=== PATIENT | female | born 1980 | race Caucasian/White ===

== ENCOUNTER 2018-10-26 21:03 | Emergency (ER) | payer SELFPAY ==
[~2018-10-26] VITALS: Ht 160 cm; Wt 96.2 kg
[2018-10-26 21:10] VITALS: BP 128/65
--- NOTE | 2018-10-26 21:10 | NUR ---
TO BED # 02 VIA WHEELCHAIR
--- NOTE | 2018-10-26 21:14 | NUR ---
38 YO FEMALE COMES TO ED FOR S/P FALL. 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 PT STATES, I HAD SLIPPED AND TWISTED MY R ANKLE AND FELL. MY L FOOT AND L SHOULDER HIT THE GROUND HARD. PT DENIES N/V/D. PT AAOX4. LUNGS CLEAR EVEN UNLABORED. DISTAL PULSES INTACT +2 PEDAL AND +2 POST TIBIAL PULSES. R ANKLE SWELLING NOTED, DISCOLORATION NOTED WELL. LIMITED ROM, SENSATION INTACT. R SHOULDER AND L FOOT LIMITED ROM. SKIN INTACT. PMH: DENIES NKA LMP: 10/21/18
[2018-10-26] MEDS ORDERED: IBUPROFEN 800 MG TAB PO ONE (22:25)
--- NOTE | 2018-10-26 22:44 | NUR ---
Dr. Ascencio evaluating patient at bedside.
[2018-10-26 22:54] VITALS: BP 115/61
--- NOTE | 2018-10-26 22:54 | NUR ---
Patient discharged with v/s stable. Written and verbal after care instructions given and explained. Patient alert, oriented and verbalized understanding of instructions. Wheel chair assisted to car. All questions addressed prior to discharge. ID band removed. Patient advised to follow up with PMD. Rx of Ibuprofen 800mg given. Patient educated on indication of medication including possible reaction and side effects. Opportunity to ask questions provided and answered.
== END 2018-10-26 22:54 | disposition home or self-care (01) ==
LOC: MED 21:03
DX: S93.401A Sprain of unspecified ligament of right ankle, initial encounter (principal); S40.012A Contusion of left shoulder, initial encounter; M79.675 Pain in left toe(s); X58.XXXA Exposure to other specified factors, initial encounter; Y93.89 Activity, other specified; Y92.89 Other specified places as the place of occurrence of the external cause; Y99.8 Other external cause status
CPT/HCPCS: 73030; 73610; 73660; 99283; Q0092

== ENCOUNTER 2018-10-29 22:03 | Emergency (ER) | payer SELFPAY ==
[~2018-10-29] VITALS: Ht 160 cm; Wt 97.1 kg
[2018-10-29 22:45] VITALS: BP 119/69
--- NOTE | 2018-10-29 22:51 | NUR ---
PT TRIAGED, SENT BACK TO LOBBY AWAITING FOR BED
--- NOTE | 2018-10-30 00:56 | NUR ---
PT AMBULATED TO BED 3
--- NOTE | 2018-10-30 01:09 | NUR ---
38 Y/O F PRESENTED TO ED WITH C/O R ANKLE PAIN X4 DAYS S/P SLIP AND FALL AT HOME. 02/20 PAIN, ACHING. +CMS. BRUSING AND EDEMA NOTED TO R ANKLE. ERMD NOTIFIED. WILL CONTINUE TO MONITOR.
--- NOTE | 2018-10-30 02:15 | NUR ---
PT ANKLE WRAPPED IN ANKLE STIRRUP SPLINT AND COVERED WITH RIYA WRAP. +CSM
--- NOTE | 2018-10-30 02:16 | NUR ---
PT GIVEN INSTRUCTION ON PROPER USE OF CRUTCHES. CRUTCHES FITTED TO PT HEIGHT AND ARM LENGTH. PT GIVEN INSTRUCTION ON SAFE USE OF CRUTCHES, INCLUDING MOVING FROM SITTING TO STANDING AND VICE VERSA, ASCENDING/ DESCENDING STAIRS, AND WALKING. PT DEMONSTRATED PROPER USE FOR APPROXIMATELY 40 FEET, PT STATED SHE FELT COMFORTABLE WITH USE.
--- NOTE | 2018-10-30 02:21 | NUR ---
R ANKLE PLACED BY EMT, +CMS.
[2018-10-30 02:24] VITALS: BP 109/76
--- NOTE | 2018-10-30 02:25 | NUR ---
Patient discharged with v/s stable. Written and verbal after care instructions given and explained. Patient alert, oriented and verbalized understanding of instructions. Ambulatory with crutches. All questions addressed prior to discharge. ID band removed. Patient advised to follow up with PMD. Rx of MOTRIN, NORCO given. Patient educated on indication of medication including possible reaction and side effects. Opportunity to ask questions provided and answered.
== END 2018-10-30 02:24 | disposition home or self-care (01) ==
LOC: MED 22:03
DX: S82.891A Other fracture of right lower leg, initial encounter for closed fracture (principal); X58.XXXA Exposure to other specified factors, initial encounter; Y93.89 Activity, other specified; Y92.89 Other specified places as the place of occurrence of the external cause; Y99.8 Other external cause status
CPT/HCPCS: 29515; 73610; 73630; 99283